=== PATIENT | male | born 1995 | race Hispanic/Latino ===

== ENCOUNTER 2017-10-07 14:11 | Inpatient (IN) | payer BC, OTHER ==
[2017-10-07] MEDS ORDERED: Adenosine 6 MG/2 ML VIAL ONE (14:22)
[2017-10-07] MEDS ORDERED: Fentanyl 100 MCG/2 ML VIAL ONE ×2 (14:27→16:27)
[2017-10-07] MEDS ORDERED: Midazolam HCl 2 mg/2 ml Vial ONE ×3 (14:27→16:27)
[2017-10-07 14:38] LABS: #Basophils 0.1 thou/uL (0.0-0.2); #Eosinphils 0.1 thou/uL (0.0-0.7); #Lymphocytes 1.8 thou/uL (1.20-3.40); #Monocytes 1.2 thou/uL (0.11-0.59); #Neutrophils 5.8 thou/uL (1.40-6.50); %Basophils 1.1 % (0.0-1.0); %Eosinophils 0.8 % (0.0-10.0); %Lymphocytes 20.2 % (21.0-51.0); %Monocytes 13.2 % (0.0-10.0); %Neutrophils 64.7 % (42.0-75.0); Hemoglobin 13.7 g/dL (14.0-18.0); Mean Corpuscular HGB CONC 33.1 g/dL (32.0-36.0); Mean Corpuscular Hemoglobin 30.8 pg (27.0-31.0); Mean Corpuscular Volume 93.1 fL (78.0-98.0); Mean Platelet Volume 10.2 fL (7.4-10.4); Platelet Count 233 thou/uL (130-400); Red Blood Cell (RBC) Count 4.44 mill/uL (4.70-6.10); White Blood Cell (WBC) Count 8.9 thou/uL (4.8-10.8)
[2017-10-07] MEDS ORDERED: Magnesium Sulfate 2 GM in Sodium Chloride 0.9% 100 ML IVPB SCH (15:00)
[2017-10-07 15:01] LABS: ALT (SGPT) 100 U/L (8-55); AST (SGOT) 53 U/L (5-34); Albumin 3.9 g/dL (3.5-5.0); Alkaline Phosphatase 62 U/L (40-150); Anion Gap 14 mmol/L (10-20); BUN (Urea Nitrogen) 18 mg/dL (8.9-20.6); Bilirubin, Total 1.2 mg/dL (0.2-1.2); Calc. Creatinine Clearance 0 mL/min (70-130); Calcium 9.3 mg/dL (7.8-10.44); Carbon Dioxide 25 mmol/L (22-29); Chloride 104 mmol/L (98-107); Estimated GFR-MDRD 60; Globulin 2.7 g/dL (2.4-3.5); Glucose 97 mg/dL (70-105); Potassium 4.2 mmol/L (3.5-5.1); Protein, Total 6.6 g/dL (6.0-8.3); Sodium 139 mmol/L (136-145)
[2017-10-07 15:03] LABS: CKMB 2.7 ng/mL (0-6.6); Troponin I Less than 0.010 ng/mL (< 0.028)
[2017-10-07] MEDS ORDERED: Verapamil 5 MG/2 ML VIAL IVP SCH (16:00)
[2017-10-07] MEDS ORDERED: Amiodarone HCl 150 MG, Admixture Fee 1 EACH in Dextrose 5% in Water 100 ML IVPB SCH (16:00)
--- NOTE | 2017-10-07 18:27 | RAD ---
CHEST ONE VIEW: 10/07/17 HISTORY: Rapid heart rate. COMPARISON: None. FINDINGS: Heart size is enlarged. Mild interstitial and alveolar edema. Small effusions. No pneumothorax. IMPRESSION: Cardiomegaly and mild edema. POS: [facility]
[2017-10-07 19:20] LABS: Troponin I Less than 0.010 ng/mL (< 0.028)
[2017-10-07] MEDS ORDERED: Furosemide 40 MG/4 ML VIAL ONE (20:17)
[2017-10-07 21:03] LABS: Bilirubin Negative (Negative); Blood, Urine Negative (Negative); Clarity CLEAR (Clear); Glucose, Urine (Dipstick) Negative (Negative); Leukocyte Negative (Negative); Nitrite Negative (Negative); Protein, Urine (Dipstick) Negative (Neg-Trace); Specific Gravity, Urine 1.015 (1.002-1.036); Urobilinogen 0.2 mg/dL (0.2-1.0); pH, Urine 5.5 (5.0-9.0)
[2017-10-07] MEDS ORDERED: Ondansetron ODT 4 MG TAB PO PRN (21:11)
[2017-10-07] MEDS ORDERED: Ondansetron HCl/PF 4 MG/2 ML Vial IVP PRN (21:11)
[2017-10-07] MEDS ORDERED: Benzonatate 100 MG CAP PO PRN (21:11)
[2017-10-07] MEDS ORDERED: cloNIDine 0.1 MG TAB PO PRN (21:11)
[2017-10-07] MEDS ORDERED: hydrALAZINE 20 MG/ML VIAL SLOW IVP PRN (21:11)
[2017-10-07] MEDS ORDERED: Spironolactone 25 MG TAB PO SCH (21:15)
[2017-10-07] MEDS ORDERED: Furosemide 20 MG/2 ML VIAL SLOW IVP SCH (21:30)
[2017-10-07 21:39] VITALS: BMI 39.2
[2017-10-07] MEDS: Lisinopril 5 MG TAB PO SCH (21:49)
[2017-10-07 22:01] LABS: CKMB 3.2 ng/mL (0-6.6); Troponin I Less than 0.010 ng/mL (< 0.028)
[2017-10-07 23:03] LABS: Bilirubin Negative (Negative); Blood, Urine Negative (Negative); Clarity CLEAR (Clear); Glucose, Urine (Dipstick) Negative (Negative); Leukocyte Negative (Negative); Nitrite Negative (Negative); Protein, Urine (Dipstick) Negative (Neg-Trace); Specific Gravity, Urine 1.005 (1.002-1.036); Urobilinogen 0.2 mg/dL (0.2-1.0)
[2017-10-07 23:11] LABS: Amphetamine Not Detected (NotDetected); Barbiturates Screen Not Detected (NotDetected); Benzodiazepine Screen Not Detected (NotDetected); Cocaine Metabolite Screen Not Detected (NotDetected); Medtox Control Line Valid? VALID (VALID); Medtox Reader # READER 4; Methadone Not Detected (NotDetected); Methamphetamine Not Detected (NotDetected); Opiate Screen Not Detected (NotDetected); Oxycodone Screen Not Detected (NotDetected); Phencyclidine (PCP) Not Detected (NotDetected); THC/Cannabinoid Screen Not Detected (NotDetected); Tricyclic Screen Not Detected (NotDetected)
--- NOTE | 2017-10-07 23:16 | CON ---
DATE OF CONSULT: 10/07/17 HISTORY: The patient is a 22-year-old gentleman who presented with acute onset of palpitations and dyspnea. T he patient states that approximately two weeks ago he started having fever and chills. He noticed in creasing dyspnea, presented to the emergency room in marked respiratory distress. PAST MEDICAL HISTORY: None. PAST SURGICAL HISTORY: None. SOCIAL HISTORY: He denies any excess alcohol use. He is a nonsmoker. ALLERGIES: None. PHYSICAL EXAMINATION: GENERAL: This is a morbidly obese gentleman and marked distress. VITAL SIGNS: His blood pressure was 150/100. NECK: Full: LUNGS: Crackles in both bases. HEART: Regular rate and rhythm, normal S1, S2, no murmurs. ABDOMEN: Distended. EXTREMITIES: Showed mild bilateral edema. LABORATORY RESULTS: Sodium 139, potassium 4.2, chloride 104, bicarbonate 25, BUN 18, creatinine 1.46. AST was 57, tropon in less than 0.01. White blood count 8.9, hemoglobin 13.7, hematocrit 41.3, platelets are 233. His EKG revealed a wide complex tachycardia suggestive of ventricular tachycardia. IMPRESSION: 1. Wide complex tachycardia, probable ventricular tachycardia. 2. Congestive heart failure. 3. Cardiomyopathy. This gentleman presented with acute respiratory distress. He underwent an emergent electrical cardio version on two occasions. He remained in a rapid wide complex tachycardia. He subsequently received two doses of adenosine. Following this, the patient was administered IV amiodarone. He underwent a n emergent echocardiogram which revealed him to have a severe decrease in left systolic function with global hypokinesis. The patient subsequently received IV amiodarone drip and converted back to norm al sinus rhythm. The patient will be admitted to the ICU. He will be started on low dose WYATT inhibi tor therapy. We will diurese with IV Lasix. We will follow this patient with you throughout his hos pitalization.
[2017-10-07] MEDS: Amiodarone HCl 450 MG, Admixture Fee 1 EACH in Dextrose 5% in Water 250 ML IVPB SCH (23:25)
--- NOTE | 2017-10-08 02:04 | CON ---
ELECTROPHYSIOLOGY CONSULTATION REPORT DATE OF CONSULTATION: 10/07/2017 REFERRING PHYSICIAN: Dr. Huseyin Mcdonald. 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 His problems are: 1. Presentation of tachycardia at a rate of 171 beats per minute with associated palpitations. A. When EKG on admit reveals a borderline wide QRS at 120 milliseconds with an atypical right bundle left axis morphology previous likely 1:1 retrograde conducted. B. Amiodarone eventually terminated the arrhythmia, but no response to adenosine seen and cardioversion was performed, but prompt recurrence of the atrial arrhythmia was seen after that. 2. Preliminary 2D echocardiogram in the ER during ventricular tachycardia reveals very poor LVEF, a 4-chamber dilation, no significant valvular heart disease, mild pericardial effusion. 3. Risk factors including morbid obesity. ALLERGIES: None noted. MEDICATIONS AT HOME: None. SUBJECTIVE: Mr. Orr was presenting in the ER with 2 weeks of palpitations, also some abdominal discomfort. He had poor p.o. intake started dropping upon 50s, 180s. He was evaluated by the ER physician eventually, adenosine was attempted a 6 and 12 mg without effect. Following that, the tachycardia quickly recurred up to 200 joule shocks, he did not cardiovert. Following that , IV amiodarone was given in the ER and bolus dosages then drip was initiated. He then spontaneously converted back to sinus rhythm on the amiodarone drip. He maintained sinus rhythm subsequent to that, the QRS complex is clearly demonstrated different morphology during sinus rhythm. No ST-T changes noted. At this point, he is not markedly dyspneic even at the supine position. His oxygen saturation is 100% by laying flat. His blood pressure was somewhat low, though with sedation at first. He does not pass out. No fever, chills are noted, mostly abdominal symptoms, but some viral symptoms also felt. No major coughing either. No phlegm, no production noted. He never had chest pain suggest angina or myocardial infarction. REVIEW OF SYSTEMS: Rest of 12-point system otherwise unremarkable. PAST MEDICAL HISTORY: No prior heart history. No congenital heart disease is appreciated. SOCIAL HISTORY: The patient is a student at [employer] and just graduated. He is originally from [place]. FAMILY HISTORY: Please refer to H and P at this point, not contributory. SOCIAL HISTORY: The patient denies smoking, EtOH, or drug abuse. OBJECTIVE: VITAL SIGNS: Blood pressure is 131/101, heart rate 168, respirations 18, oxygen saturation 99%. The patient is afebrile on arrival. GENERAL: Reveals a morbidly obese man in no apparent distress. NECK: Supple. Jugular veins difficult to visualize. CHEST: Coarse without crackles. Heart sounds are distant. S2 split. S4 gallop is heard. Heart rates are tachycardic. The PMI is nonpalpable. NEUROLOGIC: Patient nonfocal. MUSCULOSKELETAL: Without joint swelling or deformity. SKIN: Without rash. DATABASE: EKG again initially reveals a wide complex tachycardia with only 110 milliseconds. It is an atypical right bundle with left axis deviation. PVS are possibly seen following each QRS complex. Subsequent EKG after conversion reveals sinus rhythm, rate of 96 beats per minute, narrow QRS, normal RV progression, T-wave inversion seen inferolaterally. LABORATORY DATA: Magnesium is 2. Troponin I is less than 0.01, CK-MB is 2.7. Sodium 139, potassium 4.2, BUN is 18, creatinine is 1.46, GFR is 60. The AST and ALT are 53 and 100, white cell count 8.9, hemoglobin 13.7, platelet count is 233. ASSESSMENT AND PLAN: Mr. Orr is a pleasant 22-year-old man who has not much cardiac history in the past who presented with palpitations and some abdominal discomfort and noted to be in wide complex tachycardia with morphology consistent with ventricular tachycardia. He did develop hemodynamic instability while in ER with hypotension. Initially this rhythm did not respond to adenosine up to 200 joules of shock. Eventually amiodarone did convert him back to sinus rhythm. His preliminary echocardiogram reveals severely reduced LV function. He has a cardiomyopathy process with a scar formation and the ventricular tachycardia. alternatively his ventricular tachycardia could be a fascicular VT and his reduced LVEF could be related to the rapid heart rates, but this is much less likely in view of the severe LV dysfunction. Further conclusions could be drawn with response to rate control and continued heart failure therapy in response to the LV ejection fraction to the system. Plans were discussed with Dr. Mcdonald. At this point, reasonable to continue IV then p.o. amiodarone. Further ischemic workup might be necessary with heart catheterization, although by history, I am not expecting an ischemic cardiomyopathy. Hence he has VT was the primary presentation he will likely benefit from ICD implantation. 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 Thank you for the consult. We will follow with you. HOMERO
--- NOTE | 2017-10-08 04:10 | HP ---
DATE OF ADMISSION: 10/07/2017 PRIMARY CARE PROVIDER: Rupinder James M.D. CHIEF COMPLAINT: Dizziness and indigestion. HISTORY OF PRESENT ILLNESS: This is a 22-year-old male who presents to [facility] in transfer from [facility] after patient presented for evaluation of persistent dizz iness and indigestion with epigastric fullness. The patient states he first noticed this epigastric fullness and indigestion and dizziness over the last 1-1/2 years, progressing in the last 48 hours. The patient has noticed difficulty with performing exercise or exerting himself with a fullness in hi s epigastric region. The patient states he had some vomiting and nausea taking over the counter Pept o-Bismol and MiraLax. The patient states the abdominal discomfort is worse with fatty foods. The pa tient has noticed increased associated cough worse at night and having to prop himself up on pillows to sleep. The patient states he was diagnosed with a bronchitis in the last 5 weeks and treated with oral antibiotics. The patient has noticed increased weight gain, but not specifically lower extremi ty swelling. After patient presented to the emergency room, patient was noted with tachycardia and s pecifically ventricular tachycardia. The patient was immediately treated with IV verapamil as well a s adenosine. The patient was unable to convert with IV chemical conversion and proceeded with electr ical cardioversion. The patient was received fentanyl and Versed as well as magnesium sulfate. The patient eventually converted to a sinus tachycardia and placed on amiodarone infusion. The patient w as evaluated by the Cardiology Service in the emergency room with recommendations to transfer to the Critical Care Unit on an amiodarone infusion. The patient also received IV Lasix prior to transfer t o the Critical Care Unit. The patient denies any strong family history of coronary artery disease or heart failure. The patient states he is originally from [place] and just completed his education a t [employer] graduating. PAST MEDICAL HISTORY: Reviewed and negative. PAST SURGICAL HISTORY: Reviewed and negative. CURRENT MEDICATIONS: MiraLax and Pepto-Bismol over the counter. ALLERGIES: No known drug allergies. FAMILY HISTORY: No inheritable diseases per patient report. SOCIAL HISTORY: The patient originally from [place]. Graduate of [employer] in 2018. Occasional al cohol use. No tobacco or illicit drug use. Active, playing tennis, cycling and video games. REVIEW OF SYSTEMS: The following complete review of systems was negative, unless otherwise mentioned in the HPI or below: Constitutional: Weight loss or gain, ability to conduct usual activities. Sk in: Rash, itching. Eyes: Double vision, pain. ENT/Mouth: Nose bleeding, neck stiffness, pain, ten derness. Cardiovascular: Palpitations, dyspnea on exertion, orthopnea. Respiratory: Shortness of breath, wheezing, cough, hemoptysis, fever or night sweats. Gastrointestinal: Poor appetite, abdomi nal pain, heartburn, nausea, vomiting, constipation, or diarrhea. Genitourinary: Urgency, frequency , dysuria, nocturia. Musculoskeletal: Pain, swelling. Neurologic/Psychiatric: Anxiety, depression . Allergy/Immunologic: Skin rash, bleeding tendency. Otherwise negative except as stated per HPI. PHYSICAL EXAMINATION: VITAL SIGNS: Currently, blood pressure 130/77, pulse 107, respiratory rate 30, temperature 97.9 degr ees Fahrenheit, O2 saturation 100% on 10 liters by face mask. HEENT: Pupils are equal, round, and reactive to light and accommodation. Extraocular muscles are in tact. No scleral icterus, no conjunctival injection. Nares patent. OP is clear. Teeth in fair rep air. NECK: Supple, no cervical adenopathy, no thyromegaly, no carotid bruits, no JVD appreciated. Cervic al spine with full active and passive range of motion. No meningeal signs appreciated. CHEST: Decreased breath sounds with bibasilar crackles. CARDIOVASCULAR: S1, S2 with tachycardia. No murmur, rub or gallop appreciated. ABDOMEN: Rounded, soft, nontender, nondistended. Bowel sounds are positive in all four quadrants. No hepatosplenomegaly, no abdominal bruits, no rebound or guarding appreciated. EXTREMITIES: Warm and dry with fair turgor. No clubbing, cyanosis or asymmetric edema appreciated. Pulses palpable distally at the dorsalis pedis, posterior tibial, and popliteal arteries bilaterally . Capillary refill less than 2 seconds. NEUROLOGIC: Cranial nerves II-XII are grossly intact. No focal or lateralizing signs appreciated. PERTINENT LABORATORY AND X-RAY FINDINGS: Sodium 139, potassium 4.2, chloride 104, CO2 of 25, BUN 18, creatinine 1.46, estimated GFR of 60, glucose 97, calcium 9.3, magnesium 2.0, total bilirubin 1.2, A ST 53, ALT 100, alkaline phosphatase 62, troponin I negative x2. Albumin 3.9. CBC showed a white bl ood cell count of 8.9, hemoglobin 14, hematocrit 41, platelet count 233 with 65% neutrophils. Nathanael deutsch chest x-ray dated 10/07/2017 showed cardiomegaly with pulmonary edema. A 2D transthoracic echocar diogram dated 10/07/2017 showed ejection fraction of 15%-20%. Mild left atrial enlargement. Mild to moderate tricuspid valve regurgitation. Small pericardial effusion. EKG dated 10/07/2017 shows sup raventricular tachycardia/ventricular tachycardia. Repeat EKG dated 10/07/2017 by my interpretation shows a sinus mechanism with heart rates in the 90s. Attenuated R waves noted in the precordial lead s. Right axis deviation. T-wave inversion in leads II, III, and F. ASSESSMENT AND PLAN: 1. Sustained ventricular tachycardia. The patient will be admitted to the critical care unit. Stat us post chemical and electrical cardioversion with current amiodarone infusion. We will continue ami odarone infusion and monitor clinical response. We will consult Cardiology and Electrophysiology Ser vice in the a.m. Check magnesium and TSH level. Check urine drug screen. 2. Acute systolic congestive heart failure. Exact etiology unclear. Questionable etiology. We alvin l continue general workup including viral studies. Differential is extensive. The patient likely wi ll need cardiac catheterization to rule out underlying ischemic etiology. Continue aspirin 325 mg da fran. Lasix 40 mg IV q.12 hours. We will give additional Lasix 20 mg IV x1 now. Start Lisinopril 2. 5 mg p.o. b.i.d. 3. Cardiomyopathy. See #2 above. We will continue general workup as outlined previously. Check AN A, HIV, iron studies and lipid profile. 4. Acute kidney injury. Suspect secondarily to intravascular volume depletion in the context of con gestive heart failure. Check urinalysis. Avoid nephrotoxic agents and limit contrast exposure. Rep eat creatinine in the a.m. 5. Transaminitis. Suspect hepatic congestion secondary to congestive heart failure. Repeat liver f unction tests and monitor trend. 6. Prophylaxis. Sequential compression devices while in bed. Pepcid 20 mg p.o. b.i.d. 7. Code status is FULL. Surrogate medical decision maker not identified.
[2017-10-08 05:23] LABS: Band 12 % (5-11); Eosinophils 1 % (0-10); Hemoglobin 12.8 g/dL (14.0-18.0); Lymphocytes 16 % (21-51); MDiff Complete? YES; Mean Corpuscular HGB CONC 34.2 g/dL (32.0-36.0); Mean Corpuscular Hemoglobin 31.8 pg (27.0-31.0); Mean Corpuscular Volume 93.1 fL (78.0-98.0); Mean Platelet Volume 10.1 fL (7.4-10.4); Monocytes 8 % (0-10); Neutrophil 63 % (42-75); PLT Morphology Comment Appears Adequate; Platelet Count 191 thou/uL (130-400); RBC Distribution Width 12.9 % (11.5-14.5); Red Blood Cell (RBC) Count 4.03 mill/uL (4.70-6.10)
[2017-10-08 05:28] LABS: ALT (SGPT) 82 U/L (8-55); AST (SGOT) 43 U/L (5-34); Albumin 3.5 g/dL (3.5-5.0); Alkaline Phosphatase 53 U/L (40-150); Anion Gap 15 mmol/L (10-20); BUN (Urea Nitrogen) 16 mg/dL (8.9-20.6); Bilirubin, Total 1.6 mg/dL (0.2-1.2); Calc. Creatinine Clearance 191 mL/min (70-130); Calcium 8.7 mg/dL (7.8-10.44); Carbon Dioxide 22 mmol/L (22-29); Cardiac Risk 5.9 (Less than 4.5); Chloride 107 mmol/L (98-107); Cholesterol 94 mg/dl (< 200 Desired); Estimated GFR-MDRD 76; Globulin 2.3 g/dL (2.4-3.5); Glucose 150 mg/dL (70-105); HDL Cholesterol 16 mg/dL (>60 Neg Risk); Iron 42 ug/dL (65-175); LDL Cholesterol, Calculated 63 mg/dL; Magnesium 1.7 mg/dL (1.6-2.6); Potassium 3.9 mmol/L (3.5-5.1); Protein, Total 5.8 g/dL (6.0-8.3); Sodium 140 mmol/L (136-145); Triglycerides 77 mg/dL (Less than 150)
[2017-10-08] MEDS: Furosemide 40 MG/4 ML VIAL SLOW IVP SCH ×2 (06:35→14:15)
[2017-10-08] MEDS: Lisinopril 5 MG TAB PO SCH (08:18)
[2017-10-08] MEDS: Spironolactone 25 MG TAB PO SCH (08:22)
[2017-10-08] MEDS: Aspirin 325 mg Enteric Coated Tablet PO SCH (08:22)
[2017-10-08] MEDS: Famotidine 20 MG TAB PO SCH ×2 (08:22→21:33)
[2017-10-08] MEDS ORDERED: Carvedilol 3.125 MG TAB PO SCH (08:45)
[2017-10-08] MEDS ORDERED: Carvedilol 6.25 MG TAB PO SCH (08:45)
--- NOTE | 2017-10-08 09:19 | RAD ---
PORTABLE CHEST 1 VIEW: Date: 10/08/17 Time: 0805 hours HISTORY: Chest pain. FINDINGS: Comparison made with exam from previous day. The heart is enlarged. The lungs are expanded with mild pulmonary edema. No lobar consolidation, pneu mothoraces, or large effusions are seen. IMPRESSION: Mild CHF. POS: [facility]
[2017-10-08] MEDS ORDERED: Lisinopril 5 MG TAB PO SCH (10:40)
[2017-10-08] MEDS ORDERED: Communication Order-Pharmacy FS SCH (10:45)
[2017-10-08] MEDS ORDERED: ISOVUE-370 76%-LOCM 1 ML ONE (10:47)
[2017-10-08] MEDS: Acetaminophen 500 MG TAB PO PRN (11:25)
--- NOTE | 2017-10-08 11:26 | CON ---
DATE OF CONSULTATION: 10/08/2017 SERVICE: Pulmonary Medicine. REASON FOR CONSULTATION: ICU patient. HISTORY OF PRESENT ILLNESS: The patient is a 22-year-old male with past medical history significant for nothing. He was in his usual state of health until back in the late June when he had the onset of some sort of an upper respiratory tract infection. It lingered for 2-3 weeks and ultimately went away with a combination of allergy medications as well as antibiotics. Ultimately, he returned to his usual state of health and he had no incidence there. He does not report having any sick contacts. He started having onset of shortness of breath, particularly with exertion. He presented to the emergency department and was discovered to have a cardiomyopathy. In the ER, he had a ventricular tachycardia. He was hemodynamically stable. As such, he was placed on medications. He spontaneously converted. He is currently in sinus tachycardia, but otherwise is not having any respiratory events. He relates being short of breath after he got a nonrebreather placed on his face. He was very uncomfortable with this device on. He became claustrophobic and started having severe dyspnea. He did get a dose of Lasix. He had a significant diuresis with it. That being said, he is down to 2 liters nasal cannula at this time and he is breathing comfortably. He does not have any conversational dyspnea or tachypnea at this point. PAST MEDICAL HISTORY: None. PAST SURGICAL HISTORY: None. ALLERGIES: No known drug allergies. MEDICATIONS: List of his inpatient medications were reviewed. No specific updates were made at this time. FAMILY HISTORY: Noncontributory. SOCIAL HISTORY: He is a [place]. He graduated from [employer] in 2018. He does not have any significant alcohol use. He does not have any episodes of abusing alcohol recently. He denies any tobacco or illicit drug use. He has no exposure to chemicals, dust, asbestos, or tuberculosis. He is not on any weight loss medications and does not take any wmby-oyz-zdxzkaj supplements. REVIEW OF SYSTEMS: General, head, ears, eyes, nose, throat, cardiovascular, respiratory, GI, , musculoskeletal, neurologic, and skin is negative except as mentioned in the HPI. PHYSICAL EXAMINATION: VITAL SIGNS: Afebrile, pulse 100, blood pressure 128/78, respirations 31, saturation 98% on 3 liters nasal cannula. GENERAL: The patient is awake and alert. No apparent distress. LUNGS: There is a little bit of dependent crackles present. There is also decreased air entry at the right base with a dullness to percussion there. HEART: Tachycardic. Regular. ABDOMEN: Soft, nontender, nondistended. Bowel sounds are positive. MUSCULOSKELETAL: No cyanosis or clubbing. There is no pitting in the bilateral lower extremities. NEUROLOGIC: Grossly nonfocal. LABORATORY DATA: Basic metabolic profile is essentially unremarkable. Liver function studies including bilirubin, AST, and ALT are marginally elevated. The LFTs are actually downtrending gently. Cardiac enzymes are negative. TSH falls within the normal limits. Magnesium is normal. Creatinine was 1.46, but is now downtrending to 1.18. Urinalysis is unremarkable. Urine drug screen is completely unremarkable as well. Blood cultures x2 are negative. IMAGIN. Chest x-ray demonstrates cardiomegaly. There is no obvious consolidation. Pulmonary vasculature is a little bit engorged, and there is a little widening to the loren suggestive of left atrial enlargement. 2. Echocardiogram demonstrates a 15%-20% ejection fraction. He has got a dilated ventricle with global hypokinesis. [id number] tricuspid regurgitation is also present. There is a small circumferential pericardial effusion identified. ASSESSMENT: 1. Acute hypoxic respiratory failure. 2. Acute systolic heart failure. 3. Ventricular tachycardia, stable. DISCUSSION AND PLAN: We will try to diurese the patient until he arrives to euvolemia. We will try to mobilize the patient some throughout the day. He will remain in the ICU until Cardiology clears him for transition to the telemetry unit. Pulmonary Critical Care will continue to follow along in this location. He may benefit from an outpatient evaluation for obstructive sleep apnea. 70 minutes have been devoted to this patient in various activities. I personally reviewed all imaging studies and laboratory data noted within this document. For fifty percent of this time, I was interacting with the patient at the bedside or coordinating care with the care team. For the remainder of the time I was immediately available to the patient in the hospital unit. HOMERO
--- NOTE | 2017-10-08 11:39 | CT ---
CT PULMONARY ANGIOGRAM WITH IV CONTRAST AND 3D MIP RECONSTRUCTIONS: Date: 10/08/17 PROVIDED CLINICAL HISTORY: Shortness of breath and tachycardia. FINDINGS: The heart is enlarged. There is no evidence for central or segmental pulmonary embolus. There is patchy bilateral predominantly parahilar and biapical air space disease (combination of grou nd-glass opacity and consolidation). There is a mild to moderate pericardial effusion. There are bila teral pleural effusions, greater on the right. There is passive atelectasis involving each lower lobe . There is no evidence for pneumothorax. The airway appears patent and of normal caliber. There is no evidence for thoracic lymph node enlargement. The visualized portions of the upper abdomen appear un remarkable. The osseous structures demonstrate no concerning lytic or blastic lesions. IMPRESSION: 1. Cardiomegaly and bilateral pleural effusions, along with bilateral parahilar air space disease is most suggestive of congestive heart failure and alveolar edema. Infectious or inflammatory process i nvolving the lung parenchyma could also be considered, but is less favored. 2. Mild to moderate pericardial effusion. 3. No evidence for central or segmental pulmonary embolus. POS: [facility]
[2017-10-08] MEDS: Amiodarone HCl 450 MG, Admixture Fee 1 EACH in Dextrose 5% in Water 250 ML IVPB SCH (15:59)
--- NOTE | 2017-10-08 16:19 | PDOC.PN ---
- Subjective Encounter Start Date: 10/08/17 Encounter Start Time: 11:30 Subjective: f/u for V-tach/CHF s/p chemical/electrical cardioversion on current -: Amiodarone gtt. Feels much better today. Diuresing with Lasix down -: 5Lbs since admit. - Objective MAR Reviewed: Yes Vital Signs & Weight: Vital Signs (12 hours) Temp Pulse Resp BP Pulse Ox 10/08/17 15:16 98 10/08/17 12:00 98.0 F 10/08/17 08:18 100 128/78 10/08/17 07:39 98.0 F 100 21 H 93 L 10/08/17 07:00 98.0 F Weight Weight 300 lb 14.896 oz Most Recent Monitor Data Heart Rate from ECG 84 NIBP 133/77 NIBP BP-Mean 95 Respiration from ECG 32 SpO2 98 I&O: 10/07/17 10/08/17 10/09/17 06:59 06:59 06:59 Intake Total 355 960 Output Total 4500 3675 Balance -9288 -6168 Result Diagrams: 10/08/17 04:28 10/08/17 04:28 Additional Labs: Microbiology 10/07/17 17:38 Venous blood - Left Arm Blood Culture - Preliminary Specimen has been received and culture in progress. No Growth to date. 10/07/17 17:33 Venous blood - Left Hand Blood Culture - Preliminary Specimen has been received and culture in progress. No Growth to date. Laboratory Tests 10/07/17 10/07/17 10/07/17 14:29 14:29 14:29 WBC 8.9 Band Neuts % (Manual) D-Dimer Magnesium 2.0 AST 53 H Triglycerides Cholesterol LDL Cholesterol, Calc HDL Cholesterol TSH 3rd Generation 10/08/17 10/08/17 10/08/17 04:28 04:28 04:28 WBC Band Neuts % (Manual) 12 H D-Dimer Magnesium 1.7 AST 43 H Triglycerides 77 Cholesterol 94 LDL Cholesterol, Calc 63 HDL Cholesterol 16 TSH 3rd Generation 0.5704 10/08/17 08:24 WBC Band Neuts % (Manual) D-Dimer 13.27 H Magnesium AST Triglycerides Cholesterol LDL Cholesterol, Calc HDL Cholesterol TSH 3rd Generation Radiology Reviewed by me: Yes (CTA chest - neg for PE, bilat pleural effusions R >L) EKG Reviewed by me: Yes (Tele - SR in 80's) Phys Exam - Physical Examination Constitutional: NAD HEENT: PERRLA, sclera anicteric, oral pharynx no lesions Neck: no nodes, no JVD, supple, full ROM Diminished in R base, few basilar crackles S1, S2 Cardiovascular: RRR, no significant murmur, no rub, gallop Gastrointestinal: soft, non-tender, no distention, positive bowel sounds Musculoskeletal: no edema, pulses present Neurological: non-focal, normal sensation, moves all 4 limbs Psychiatric: normal affect, A&O x 3 Skin: no rash, normal turgor, cap refill <2 seconds Dx/Plan (1) Acute systolic CHF (congestive heart failure) Code(s): I50.21 - ACUTE SYSTOLIC (CONGESTIVE) HEART FAILURE Status: Acute Comment: EF 15-20%, continue Lasix 40mg IV BID, follow I/O's, daily weight (2) Ventricular tachycardia Code(s): I47.2 - VENTRICULAR TACHYCARDIA Status: Acute Comment: Continue Amiodarone gtt and transition to po Amiodarone in next 24-48h (3) Cardiomyopathy Code(s): I42.9 - CARDIOMYOPATHY, UNSPECIFIED Status: Acute Qualifiers: Cardiomyopathy type: viral Qualified Code(s): 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.24 - Viral cardiomyopathy Comment: 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
[2017-10-08 16:25] LABS: ANA Symphony (Qualitative) Negative (Negative); dsDNA IgG Antibody 0.7 IU/mL (<10 Negative)
[2017-10-08] MEDS: Carvedilol 3.125 MG TAB PO SCH (18:36)
[2017-10-09 05:06] LABS: ALT (SGPT) 70 U/L (8-55); AST (SGOT) 31 U/L (5-34); Albumin 3.5 g/dL (3.5-5.0); Alkaline Phosphatase 51 U/L (40-150); Anion Gap 13 mmol/L (10-20); BUN (Urea Nitrogen) 14 mg/dL (8.9-20.6); Bilirubin, Total 1.1 mg/dL (0.2-1.2); Calc. Creatinine Clearance 180 mL/min (70-130); Calcium 8.9 mg/dL (7.8-10.44); Carbon Dioxide 24 mmol/L (22-29); Chloride 108 mmol/L (98-107); Estimated GFR-MDRD 78; Globulin 2.4 g/dL (2.4-3.5); Glucose 79 mg/dL (70-105); Potassium 3.8 mmol/L (3.5-5.1); Protein, Total 5.9 g/dL (6.0-8.3); Sodium 141 mmol/L (136-145)
[2017-10-09 05:19] LABS: HIV (1/2) Antibody/Antigen Non-Reactive (NonReactive)
[2017-10-09] MEDS: Amiodarone HCl 450 MG, Admixture Fee 1 EACH in Dextrose 5% in Water 250 ML IVPB SCH (06:37)
[2017-10-09] MEDS ORDERED: Lidocaine 1% (PF) 30 ML VIAL ONE ×2 (06:38→14:45)
[2017-10-09] MEDS: Carvedilol 3.125 MG TAB PO SCH ×2 (06:51→19:15)
[2017-10-09] MEDS ORDERED: Midazolam HCl 2 mg/2 ml Vial ONE ×2 (07:38→16:12)
[2017-10-09] MEDS ORDERED: Spironolactone 25 MG TAB PO SCH (08:10)
[2017-10-09] MEDS: Amiodarone 200 MG TAB PO SCH ×3 (09:25→20:50)
[2017-10-09] MEDS: Spironolactone 25 MG TAB PO SCH (09:25)
[2017-10-09] MEDS: Lisinopril 10 MG TAB PO SCH ×2 (09:26→20:49)
[2017-10-09] MEDS: Famotidine 20 MG TAB PO SCH ×2 (09:26→20:50)
[2017-10-09] MEDS: Aspirin 325 mg Enteric Coated Tablet PO SCH (09:27)
--- NOTE | 2017-10-09 10:14 | PRG ---
DATE OF SERVICE: 10/09/2017 SERVICE: Pulmonary Medicine. INTERVAL HISTORY: The patient is doing great from a respiratory standpoint. He did not have any events on telemetry overnight. He went down for cardiac catheterization this morning. It is my understanding that he has clean coronaries. There has been no interval change to his condition otherwise. PHYSICAL EXAMINATION: VITAL SIGNS: Afebrile, pulse 81, blood pressure 131/87, respirations 32, saturation 93% on room air. GENERAL: The patient is awake, alert, no apparent distress. LUNGS: Decent air entry with no prolonged expiratory phase, wheezing, rhonchi, or crackles present. HEART: Normal rate, regular. ABDOMEN: Soft, nontender, nondistended. Bowel sounds are positive. MUSCULOSKELETAL: No cyanosis or clubbing. There is no pitting in the bilateral lower extremities. NEUROLOGIC: Grossly nonfocal. LABORATORY DATA: WBC 12.0, hemoglobin 12.8, platelets 191,000. Band count is 12%. D-dimer 13.27. Basic metabolic profile, liver function studies are otherwise unremarkable. TSH 0.57. Urinalysis and urine drug screen are unremarkable. JOSE ANGEL screen is negative. HIV 1 and 2 are nonreactive. Blood cultures x2 are negative. IMAGING: CTA of the chest demonstrates no evidence of a pulmonary embolism. Bilateral pleural effusions, and perihilar ground glass opacifications are most consistent with acute volume overload event. There is mild to moderate pericardial effusion identified. ASSESSMENT: 1. Acute systolic heart failure. 2. Nonischemic cardiomyopathy. 3. Ventricular tachycardia, stable. DISCUSSION AND PLAN: The patient is going down for an AICD today. Once this is in place, he can be transitioned to the floor if electrophysiology and Cardiology are okay with that. Pulmonary and Critical Care will continue to follow while he remains in this location. Ultimately, when he arrives on the floor, he will have no further need for Pulmonary or Critical Care opinion, and I will sign off. HOMERO
[2017-10-09] MEDS ORDERED: PROPOFOL 200 MG/20 ML VIAL ONE (12:35)
[2017-10-09] MEDS ORDERED: Iopamidol 370 76% 100 ML VIAL ONE (13:02)
[2017-10-09] MEDS ORDERED: CEFAZOLIN/Water 2 GM/20 ML SYRINGE SLOW IVP SCH (14:00)
[2017-10-09 14:32] LABS: #Eosinphils 0.2 thou/uL (0.0-0.7); #Lymphocytes 1.3 thou/uL (1.20-3.40); #Neutrophils 7.7 thou/uL (1.40-6.50); %Basophils 0.5 % (0.0-1.0); %Eosinophils 1.8 % (0.0-10.0); %Lymphocytes 12.5 % (21.0-51.0); %Monocytes 9.8 % (0.0-10.0); %Neutrophils 75.5 % (42.0-75.0); Hemoglobin 13.4 g/dL (14.0-18.0); Mean Corpuscular Hemoglobin 32.2 pg (27.0-31.0); Mean Corpuscular Volume 92.2 fL (78.0-98.0); Mean Platelet Volume 9.4 fL (7.4-10.4); Platelet Count 210 thou/uL (130-400); Red Blood Cell (RBC) Count 4.16 mill/uL (4.70-6.10); White Blood Cell (WBC) Count 10.1 thou/uL (4.8-10.8)
[2017-10-09 14:38] LABS: INR-International Normal Ratio 1.3; PTT 25.5 SEC (22.9-36.1); Prothrombin Time 15.9 SEC (12.0-14.7)
[2017-10-09] MEDS ORDERED: CEFAZOLIN/Water 2 GM/20 ML SYRINGE ONE (14:46)
[2017-10-09] MEDS: Furosemide 40 MG/4 ML VIAL SLOW IVP SCH (15:30)
[2017-10-09] MEDS ORDERED: Fentanyl 100 MCG/2 ML VIAL ONE (16:13)
[2017-10-09] MEDS ORDERED: PROPOFOL 20 ML ONE (16:52)
[2017-10-09] MEDS ORDERED: Ondansetron HCl/PF 4 MG/2 ML Vial IVP PRN (17:29)
--- NOTE | 2017-10-09 17:32 | PDOC.PN ---
- Subjective Encounter Start Date: 10/09/17 Encounter Start Time: 15:15 Subjective: f/u for V-tach, cardiomyopathy and acute syst CHF. Overall feeling -: much better and minimal dyspnea. Cardiac cath today neg for CAD. -: EF remains depressed in 15% range. Plan for AICD today. - Objective MAR Reviewed: Yes Vital Signs & Weight: Vital Signs (12 hours) Temp Pulse Resp BP Pulse Ox 10/09/17 12:00 98.0 F 10/09/17 09:26 137/94 H 10/09/17 08:30 98.1 F 86 16 95 10/09/17 08:25 82 16 137/90 10/09/17 08:00 98.1 F Weight Weight 283 lb 4.704 oz Most Recent Monitor Data Heart Rate from ECG 91 NIBP 152/101 NIBP BP-Mean 115 Respiration from ECG 27 SpO2 97 I&O: 10/08/17 10/09/17 10/10/17 06:59 06:59 06:59 Intake Total 355 1809 0 Output Total 4500 5975 625 [facility]4145 -4166 -625 Result Diagrams: 10/09/17 14:25 10/09/17 03:42 Additional Labs: Microbiology 10/07/17 17:38 Venous blood - Left Arm Blood Culture - Preliminary Specimen has been received and culture in progress. No Growth to date. 10/07/17 17:33 Venous blood - Left Hand Blood Culture - Preliminary Specimen has been received and culture in progress. No Growth to date. Laboratory Tests 10/07/17 10/07/17 10/07/17 14:29 14:29 14:29 WBC 8.9 Band Neuts % (Manual) D-Dimer Magnesium 2.0 AST 53 H Triglycerides Cholesterol LDL Cholesterol, Calc HDL Cholesterol TSH 3rd Generation JOSE ANGEL Screen JOSE ANGEL IgG Screen Anti-ds DNA IgG Ab HIV 1&2 Antigen & Ab 10/08/17 10/08/17 10/08/17 04:28 04:28 04:28 WBC Band Neuts % (Manual) 12 H D-Dimer Magnesium 1.7 AST 43 H Triglycerides 77 Cholesterol 94 LDL Cholesterol, Calc 63 HDL Cholesterol 16 TSH 3rd Generation 0.5704 JOSE ANGEL Screen JOSE ANGEL IgG Screen Anti-ds DNA IgG Ab HIV 1&2 Antigen & Ab 10/08/17 10/08/17 10/09/17 04:28 08:24 03:42 WBC Band Neuts % (Manual) D-Dimer 13.27 H Magnesium AST Triglycerides Cholesterol LDL Cholesterol, Calc HDL Cholesterol TSH 3rd Generation JOSE ANGEL Screen Negative JOSE ANGEL IgG Screen Negative Anti-ds DNA IgG Ab 0.7 HIV 1&2 Antigen & Ab Non-Reactive Radiology Reviewed by me: Yes (Heart cath - no flow limiting dz, EF 17%) EKG Reviewed by me: Yes (Tele - SR in 80's) Phys Exam - Physical Examination Constitutional: NAD HEENT: PERRLA, sclera anicteric, oral pharynx no lesions Neck: no nodes, no JVD, supple, full ROM few basilar crackles Respiratory: no wheezing, no rhonchi, clear to auscultation bilateral S1, S2 Cardiovascular: RRR, no significant murmur, no rub, gallop Gastrointestinal: soft, non-tender, no distention, positive bowel sounds Musculoskeletal: no edema, pulses present Neurological: non-focal, normal sensation, moves all 4 limbs Psychiatric: normal affect, A&O x 3 Skin: no rash, normal turgor, cap refill <2 seconds Dx/Plan (1) Acute systolic CHF (congestive heart failure) Code(s): I50.21 - ACUTE SYSTOLIC (CONGESTIVE) HEART FAILURE Status: Acute Comment: EF 15-20%, continue Lasix 40mg IV BID, follow I/O's, daily weight (2) Ventricular tachycardia Code(s): I47.2 - VENTRICULAR TACHYCARDIA Status: Acute Comment: Continue Amiodarone 400mg TID, AICD placement today (3) Cardiomyopathy Code(s): I42.9 - CARDIOMYOPATHY, UNSPECIFIED Status: Acute Qualifiers: Cardiomyopathy type: viral Qualified Code(s): B33.24 - Viral cardiomyopathy Comment: Suspected viral cardiomyopathy, supportive mgmt, WYATT-i/B-nadiya, ASA (4) SB (acute kidney injury) Code(s): N17.9 - ACUTE KIDNEY FAILURE, UNSPECIFIED Status: Acute Comment: Resolving, serial monitoring (5) Transaminitis Code(s): R74.0 - NONSPEC ELEV OF LEVELS OF TRANSAMNS & LACTIC ACID DEHYDRGNSE Status: Acute Comment: Suspect due to hepatic congestion in context of #1, stable - Plan manager social services, DVT proph w/SCDs Stable currently -: AICD placement today -: Continue WYATT-i, Aldactone, B-nadiya, Lasix -: Continue ASA 81mg daily -: Transfer to Telemetry * Likely home in am
[2017-10-09] MEDS: Acetaminophen 500 MG TAB PO PRN (20:49)
[2017-10-09] MEDS: Cephalexin 250 MG CAP PO SCH (23:33)
[2017-10-10 05:51] LABS: #Basophils 0.1 thou/uL (0.0-0.2); #Eosinphils 0.1 thou/uL (0.0-0.7); #Lymphocytes 1.6 thou/uL (1.20-3.40); #Neutrophils 5.6 thou/uL (1.40-6.50); %Basophils 0.8 % (0.0-1.0); %Eosinophils 1.6 % (0.0-10.0); %Lymphocytes 18.7 % (21.0-51.0); %Monocytes 11.6 % (0.0-10.0); %Neutrophils 67.3 % (42.0-75.0); Hemoglobin 12.8 g/dL (14.0-18.0); Mean Corpuscular HGB CONC 33.1 g/dL (32.0-36.0); Mean Corpuscular Hemoglobin 31.2 pg (27.0-31.0); Mean Corpuscular Volume 94.4 fL (78.0-98.0); Platelet Count 190 thou/uL (130-400); RBC Distribution Width 13.1 % (11.5-14.5); Red Blood Cell (RBC) Count 4.12 mill/uL (4.70-6.10); White Blood Cell (WBC) Count 8.3 thou/uL (4.8-10.8)
[2017-10-10 05:52] LABS: INR-International Normal Ratio 1.3; PTT 27.6 SEC (22.9-36.1)
[2017-10-10 05:56] LABS: Anion Gap 13 mmol/L (10-20); BUN (Urea Nitrogen) 11 mg/dL (8.9-20.6); Calc. Creatinine Clearance 243 mL/min (70-130); Calcium 8.8 mg/dL (7.8-10.44); Carbon Dioxide 19 mmol/L (22-29); Chloride 110 mmol/L (98-107); Estimated GFR-MDRD Greater than 90; Glucose 79 mg/dL (70-105); Sodium 138 mmol/L (136-145)
[2017-10-10] MEDS ORDERED: Furosemide 40 MG/4 ML VIAL SLOW IVP SCH (06:00)
[2017-10-10] MEDS: Cephalexin 250 MG CAP PO SCH ×2 (06:01→11:29)
[2017-10-10] MEDS: Acetaminophen 500 MG TAB PO PRN (06:01)
[2017-10-10] MEDS: Furosemide 40 MG/4 ML VIAL SLOW IVP SCH (06:01)
[2017-10-10] MEDS: Carvedilol 3.125 MG TAB PO SCH (08:10)
[2017-10-10] MEDS: Amiodarone 200 MG TAB PO SCH ×2 (08:11→14:27)
[2017-10-10] MEDS: Aspirin 325 mg Enteric Coated Tablet PO SCH (08:11)
[2017-10-10] MEDS: Lisinopril 10 MG TAB PO SCH (08:12)
[2017-10-10] MEDS: Famotidine 20 MG TAB PO SCH (08:12)
--- NOTE | 2017-10-10 09:38 | RAD ---
RADIOGRAPH CHEST 1 VIEW: Date: 10/10/17. Time: 6:18 a.m. HISTORY: A 22-year-old male status post new AICD placement. COMPARISON: 10/08/17 at 8:05 a.m. FINDINGS: There is a new single-lead left subclavian AICD. There is no interval change in the cardiomegaly and the diffusely prominent interstitial markings. No pneumothorax is identified. The lateral costophr enic angles remain sharp. IMPRESSION: 1. New automatic implantable cardioverter/defibrillator placement, without pneumothorax. 2. Cardiomegaly. RODOLFO [] POS: TPC
[2017-10-10 11:29] VITALS: BP 111/62; TEMP 97.8
--- NOTE | 2017-10-10 12:12 | DIS ---
DATE OF ADMISSION: 10/07/2017 DATE OF DISCHARGE: 10/10/2017 DISCHARGE DIAGNOSES: 1. Status post sustained ventricular tachycardia with chemical and electrical cardioversion. 2. Acute systolic congestive heart failure with ejection fraction of 15%-20%. 3. Nonischemic cardiomyopathy with ejection fraction of 15%-20%. 4. Status post automated internal cardioverter defibrillator placement, 10/09/2017. 5. Acute kidney injury, resolved. 6. Transaminitis secondary to hepatic congestion, resolving. CONSULTATIONS: Dr. Mcdonald with Cardiology Service. Dr. Harris with Electrophysiology Service. Dr. Calvillo with Pulmonary and Critical Care Service. PERTINENT LABORATORY DATA AND X-RAY FINDINGS: Creatinine ranged between 0.88-1.46, estimated GFR ran ged between 60 to greater than 90. Magnesium 1.7. AST ranged between 31-53, ALT ranged between 70-1 00. Troponin I negative x3. Total cholesterol 94, triglycerides 77, HDL 16, LDL 63. TSH 0.57. CBC showed a white blood cell count ranged between 8.3-12.0, hemoglobin ranged between 12.8-13.4. Urina lysis negative, 10/07/2017. Urine drug screen dated 10/07/2017, negative. JOSE ANGEL screen negative, 07/2017. HIV 1 and 2 antigen antibody negative, 10/09/2017. Blood cultures x2 from 10/07/2017 showed no growth at 48 hours. Portable chest x-ray dated 10/07/2017 showed cardiomegaly with mild pulmonar y edema. A 2D transthoracic echocardiogram dated 10/07/2017 showed ejection fraction of 15%-20%. Mi ld left atrial enlargement. Mild to moderate tricuspid regurgitation. Small pericardial effusion. CT angiogram of the chest dated 10/08/2017 showed no evidence for pulmonary embolus. Mild to moderat e pericardial effusion. Bilateral pleural effusions noted. Portable chest x-ray dated 10/10/2017 sh owed AICD device in place without evidence of pneumothorax. HOSPITAL COURSE: Patient was initially admitted after presenting with dizziness and indigestion disc overed with sustained ventricular tachycardia. The patient underwent aggressive treatment to include electrical cardioversion as well as chemical cardioversion. The patient was placed on amiodarone in fusion and transferred to the Critical Care Unit. The patient received multiple medications to inclu de magnesium and verapamil. The patient was evaluated by the Electrophysiology and Cardiology Servic e with recommendations to undergo cardiac evaluation to include 2D transthoracic echocardiogram. The patient was noted with a depressed ejection fraction of 15%-20%, prompting an investigation toward i schemic etiology. The patient underwent cardiac catheterization showing no flow limiting disease; ho wever, ejection fraction was confirmed depressed in the 15%-20% range. The patient continued on IV L asix due to volume overload and pulmonary edema stabilizing in the first 24-48 hours. The patient wa s evaluated by the Electrophysiology Service and deemed an appropriate candidate for placement of AIC D device due to high risk for recurrent life threatening arrhythmia. The patient underwent AICD plac ement on 10/09/2017 without complication. The patient continued to receive general medical therapy w ith adjustments to his antihypertensive regimen and antiarrhythmics. The patient transitioned to ami odarone 400 mg t.i.d. and tolerated the therapy without complication. Suspected underlying etiology of patient's presentation and cardiomyopathy likely viral cardiomyopathy to date. Extensive metaboli c workup has essentially been unrevealing. The patient continued to clinically improve with supporti ve management, ambulating without assistance or difficulty, tolerating regular oral intake, and voidi ng appropriately. I have examined the patient at the time of discharge and discussed pertinent foll ow up instructions, at which point the patient verbalized understanding and agreement. The patient o verall clinically stable and ready for discharge on 10/10/2017. DISCHARGE MEDICATIONS: 1. Enteric coated aspirin 81 mg 1 tab p.o. daily. 2. Amiodarone 400 mg p.o. t.i.d. 3. Coreg 12.5 mg p.o. b.i.d. 4. Keflex 500 mg p.o. q.i.d. x7 days. 5. Lasix 40 mg 1 tab p.o. daily. 6. Zestril 10 mg p.o. b.i.d. 7. Aldactone 50 mg p.o. daily. FOLLOWUP: Patient to follow up with his primary care provider, Dr. Rupinder James on 10/17/2017 at 3:15 p.m. The patient will follow up with Dr. Harris with Electrophysiology Service and to call [facility] office for appointment time and date. The patient will follow up with Dr. Huseyin Mcdonald with [facility] Cardiology Service 2-3 weeks after discharge. CONDITION ON DISCHARGE: Stable. ACTIVITY: ad ria. DIET: Heart healthy. CODE STATUS: FULL. DISPOSITION: Home, 10/10/2017. Total time preparing and coordinating discharge 38 minutes.
[2017-10-10] MEDS ORDERED: Carvedilol 6.25 MG TAB PO SCH (17:00)
--- NOTE | 2017-10-10 17:05 | EKG ---
Test Reason : STAT Blood Pressure : / mmHG Vent. Rate : 078 BPM Atrial Rate : 078 BPM P-R Int : 178 ms QRS Dur : 098 ms QT Int : 436 ms P-R-T Axes : 023 131 -09 degrees QTc Int : 497 ms Normal sinus rhythm Possible Left atrial enlargement Right axis deviation T wave abnormality, consider inferior ischemia Abnormal ECG When compared with ECG of 09-OCT-2017 14:12, No significant change was found Confirmed by DR. Melvin SHARIF ([id number]) on 10/10/2017 5:04:50 PM Referred By: RUFINO Confirmed By:DR. Melvin SHARIF
--- NOTE | 2017-10-10 17:07 | EKG ---
Test Reason : Blood Pressure : / mmHG Vent. Rate : 080 BPM Atrial Rate : 080 BPM P-R Int : 166 ms QRS Dur : 110 ms QT Int : 446 ms P-R-T Axes : 033 -39 015 degrees QTc Int : 514 ms Normal sinus rhythm Left axis deviation Prolonged QT Poor anterior R wave progression Abnormal ECG When compared with ECG of 09-OCT-2017 17:55, (Unconfirmed) QRS axis Shifted left Confirmed by DR. Melvin SHARIF ([id number]) on 10/10/2017 5:07:21 PM Referred By: YOVANY Confirmed By:DR. Melvin SHARIF
[2017-10-11] MEDS ORDERED: Furosemide 40 MG TAB PO SCH (07:30)
--- NOTE | 2017-10-11 16:11 | EKG ---
Test Reason : TACHYCARDIA Blood Pressure : / mmHG Vent. Rate : 173 BPM Atrial Rate : 053 BPM P-R Int : 000 ms QRS Dur : 122 ms QT Int : 320 ms P-R-T Axes : 000 -44 147 degrees QTc Int : 542 ms Wide QRS tachycardia Left axis deviation Abnormal ECG Confirmed by DOUGLAS DIAZ ([id number]), production editor LAWSON DE SOUZA ([id number]) on 10/11/2017 4:11:19 PM Referred By: Confirmed By:DOUGLAS DIAZ
--- NOTE | 2017-10-11 16:12 | EKG ---
Test Reason : Blood Pressure : / mmHG Vent. Rate : 171 BPM Atrial Rate : 077 BPM P-R Int : 000 ms QRS Dur : 120 ms QT Int : 322 ms P-R-T Axes : 000 -51 130 degrees QTc Int : 543 ms Wide QRS tachycardia Left axis deviation RSR' or QR pattern in V1 suggests right ventricular conduction delay Left ventricular hypertrophy with QRS widening and repolarization abnormality Possible Lateral infarct , age undetermined Inferior infarct , age undetermined Abnormal ECG Confirmed by DUOGLAS DIAZ ([id number]), editorial writer LAWSON DE SOUZA ([id number]) on 10/11/2017 4:11:37 PM Referred By: Confirmed By:DOUGLAS DIAZ
--- NOTE | 2017-10-11 16:12 | EKG ---
Test Reason : Blood Pressure : / mmHG Vent. Rate : 096 BPM Atrial Rate : 096 BPM P-R Int : 160 ms QRS Dur : 096 ms QT Int : 386 ms P-R-T Axes : 041 125 -41 degrees QTc Int : 487 ms Normal sinus rhythm Possible Left atrial enlargement Right axis deviation T wave abnormality, consider inferior ischemia Abnormal ECG Confirmed by DOUGLAS DIAZ ([id number]), sound editor LAWSON DE SOUZA ([id number]) on 10/11/2017 4:11:40 PM Referred By: Confirmed By:DOUGLAS DIAZ
== END 2017-10-10 15:21 | disposition home or self-care (01) | DRG 226 ==
LOC: ERS 14:11 → CCU 21:13 → 2NO 10-09 18:13
PROVIDERS: ADMIT Family Medicine; ATTEND Family Medicine
PROC: 0JH608Z Insertion of Defibrillator Generator into Chest Subcutaneous Tissue and Fascia, Open Approach (ICD-10-PCS; principal; 2017-10-09)
PROC: 02HK3KZ Insertion of Defibrillator Lead into Right Ventricle, Percutaneous Approach (ICD-10-PCS; 2017-10-09)
DX: I47.2 Ventricular tachycardia (principal); J96.01 Acute respiratory failure with hypoxia; I50.21 Acute systolic (congestive) heart failure; N17.9 Acute kidney failure, unspecified; I42.9 Cardiomyopathy, unspecified; I11.0 Hypertensive heart disease with heart failure; R74.0 Nonspecific elevation of levels of transaminase and lactic acid dehydrogenase [LDH]; I07.1 Rheumatic tricuspid insufficiency
CPT/HCPCS: 33249; 36005; 36415; 71045; 71275; 75820; 80048; 80053; 80061; 80306; 81003; 82553; 83540; 83735; 84443; 84484; 85007; 85025; 85027; 85379; 85610; 85730; 86038; 86225; 87040; 87389; 93005; 93010; 93306; 93458; 93641; 94760; 99152; 99153; A4216; C1769; C1777; C1786; J0153; J0282; J1644; J1940; J2001; J2250; J2704; J3010; J3475; J3490; J7050; J7070

== ENCOUNTER 2017-11-30 18:55 | Emergency (ER) | payer BC, OTHER ==
[2017-11-30 20:01] LABS: #Eosinphils 0.1 thou/uL (0.0-0.7); #Lymphocytes 1.5 thou/uL (1.20-3.40); #Monocytes 0.6 thou/uL (0.11-0.59); #Neutrophils 4.7 thou/uL (1.40-6.50); %Basophils 0.5 % (0.0-1.0); %Eosinophils 0.9 % (0.0-10.0); %Lymphocytes 22.1 % (21.0-51.0); %Monocytes 8.8 % (0.0-10.0); %Neutrophils 67.8 % (42.0-75.0); Hemoglobin 15.2 g/dL (14.0-18.0); Mean Corpuscular HGB CONC 35.1 g/dL (32.0-36.0); Mean Corpuscular Hemoglobin 31.9 pg (27.0-31.0); Mean Corpuscular Volume 90.9 fL (78.0-98.0); Mean Platelet Volume 9.3 fL (7.4-10.4); Platelet Count 166 thou/uL (130-400); RBC Distribution Width 14.2 % (11.5-14.5); Red Blood Cell (RBC) Count 4.76 mill/uL (4.70-6.10); White Blood Cell (WBC) Count 6.9 thou/uL (4.8-10.8)
[2017-11-30 20:21] LABS: ALT (SGPT) 24 U/L (8-55); AST (SGOT) 20 U/L (5-34); Albumin 4.7 g/dL (3.5-5.0); Alkaline Phosphatase 69 U/L (40-150); Anion Gap 10 mmol/L (10-20); BUN (Urea Nitrogen) 18 mg/dL (8.9-20.6); Bilirubin, Total 0.6 mg/dL (0.2-1.2); Calc. Creatinine Clearance 0 mL/min (70-130); Carbon Dioxide 26 mmol/L (22-29); Chloride 108 mmol/L (98-107); Estimated GFR-MDRD 49; Globulin 3.1 g/dL (2.4-3.5); Glucose 118 mg/dL (70-105); Potassium 3.9 mmol/L (3.5-5.1); Protein, Total 7.8 g/dL (6.0-8.3); Sodium 140 mmol/L (136-145)
[2017-11-30 20:26] LABS: CKMB 1.1 ng/mL (0-6.6); Troponin I Less than 0.010 ng/mL (< 0.028)
--- NOTE | 2017-11-30 21:01 | RAD ---
PORTABLE CHEST: HISTORY: Syncope. COMPARISON: 10/07/2017 FINDINGS: Mild cardiomegaly. There is mild vascular engorgement; however, the vascular congestion is much less pronounced than on the prior study. There is no evidence of overt congestion or edema. There is no infiltrate or effusion. AICD lead is noted. IMPRESSION: Mild cardiomegaly. The lungs are otherwise clear and unremarkable. POS: AGW
--- NOTE | 2017-12-03 13:33 | EKG ---
Test Reason : Blood Pressure : / mmHG Vent. Rate : 099 BPM Atrial Rate : 099 BPM P-R Int : 168 ms QRS Dur : 110 ms QT Int : 364 ms P-R-T Axes : 049 089 056 degrees QTc Int : 467 ms Normal sinus rhythm Normal ECG Confirmed by SANDRA MILLIGAN, ZI ([id number]), editor map AMBROSIO PAREKH ([id number]) on 12/03/2017 1:32:50 PM Referred By: Confirmed By:ZI FLORES MD
== END 2017-11-30 23:30 | disposition home or self-care (01) ==
LOC: ERS 18:55
DX: E86.0 Dehydration (principal); Z79.82 Long term (current) use of aspirin; Z79.899 Other long term (current) drug therapy
CPT/HCPCS: 71045; 80053; 82553; 83880; 84484; 85025; 93005; 96360

== ENCOUNTER → 2023-08-29 | Day surgery (SDC) | payer BC ==
[2023-08-26 11:53] VITALS: BMI 42.5
[2023-08-26 11:59] LABS: Hemoglobin 15.1 g/dL (13.5-17.5); Mean Corpuscular Hemoglobin 31.9 pg (27.0-33.0); Mean Corpuscular Volume 88.8 fl (81.2-95.1); Mean Platelet Volume 11.4 fl (7.4-10.4); Platelet Count 209 10x3/uL (150-450); RBC Distribution Width 12.7 % (11.5-14.5); Red Blood Cell (RBC) Count 4.73 10x6/uL (4.32-5.72); White Blood Cell (WBC) Count 6.8 10x3/uL (3.5-10.5)
[2023-08-26 12:27] LABS: Anion Gap 14 mmol/L (10-20); BUN (Urea Nitrogen) 15 mg/dL (8.9-20.6); Calc. Creatinine Clearance 270 mL/min (70-130); Calcium 9.9 mg/dL (7.8-10.44); Carbon Dioxide 20 mmol/L (22-29); Chloride 109 mmol/L (98-107); Estimated GFR 119; Glucose 92 mg/dL (70-105); Potassium 4.3 mmol/L (3.5-5.1); Sodium 139 mmol/L (136-145)
[~2023-08-29] MED LIST: PROPOFOL 200 MG/20 ML VIAL ONE
== END ==
LOC: SDC 07:08
PROVIDERS: ATTEND Internal Medicine Cardiovascular Disease
PROC: 4B02XTZ Measurement of Cardiac Defibrillator, External Approach (ICD-10-PCS; principal; 2023-08-29)
DX: I42.8 Other cardiomyopathies (principal); I11.0 Hypertensive heart disease with heart failure; I50.9 Heart failure, unspecified; Z95.810 Presence of automatic (implantable) cardiac defibrillator
CPT/HCPCS: 80048; 85027; 93642; J2704

== ENCOUNTER 2024-01-05 08:45 | Outpatient (CLI) | payer BC ==
[2024-01-05 10:42] LABS: #Basophils 0.05 10x3/uL (0.0-0.2); %Basophils 0.7 % (0.0-1.0); %Eosinophils 1.8 % (0.0-10.0); %Lymphocytes 31.8 % (21.0-51.0); %Monocytes 9.9 % (0.0-10.0); %Neutrophils 55.4 % (42.0-75.0); Hematocrit 42.2 % (42.0-52.0); Hemoglobin 14.3 g/dL (14.0-18.0); Mean Corpuscular HGB CONC 33.9 g/dL (32.0-36.0); Mean Corpuscular Hemoglobin 30.8 pg (27.0-31.0); Mean Corpuscular Volume 90.9 fL (78.0-98.0); Mean Platelet Volume 12.2 fL (7.4-10.4); Platelet Count 191 10x3/uL (130-400); RBC Distribution Width 13.2 % (11.5-14.5); Red Blood Cell (RBC) Count 4.64 mill/uL (4.70-6.10)
[2024-01-05 10:57] LABS: INR-International Normal Ratio 1.1; PTT 31.1 sec (22.9-36.1); Prothrombin Time 13.7 sec (12.0-14.7)
[2024-01-05 11:01] LABS: Anion Gap 14 mmol/L (10-20); BUN (Urea Nitrogen) 17 mg/dL (8.9-20.6); Calc. Creatinine Clearance 0 mL/min (70-130); Calcium 9.6 mg/dL (7.8-10.44); Carbon Dioxide 18 mmol/L (22-29); Chloride 110 mmol/L (98-107); Estimated GFR 99; Glucose 100 mg/dL (70-105); Potassium 4.3 mmol/L (3.5-5.1); Sodium 138 mmol/L (136-145)
== END 2024-01-05 08:46 | disposition home or self-care (01) ==
LOC: LABBT 08:45
PROVIDERS: ATTEND Internal Medicine Cardiovascular Disease
DX: Z01.812 Encounter for preprocedural laboratory examination (principal); I25.5 Ischemic cardiomyopathy
CPT/HCPCS: 80048; 85025; 85610; 85730

== ENCOUNTER 2024-01-07 09:58 | Day surgery (SDC) | payer BC ==
[2024-01-05 08:58] VITALS: BMI 41.3
[2024-01-07] MEDS ORDERED: fentaNYL 50 mcg/mL 1 mL Vial ONE (10:33)
[2024-01-07] MEDS ORDERED: Midazolam HCl 2 mg/2 ml Vial ONE (10:34)
[2024-01-07] MEDS ORDERED: Lidocaine 1% (PF) 30 ML VIAL ONE (10:34)
[2024-01-07] MEDS ORDERED: PROPOFOL 20 ML ONE (10:34)
[2024-01-07] MEDS ORDERED: Dexamethasone 4 mg/ml Vial ONE (10:50)
[2024-01-07] MEDS ORDERED: Ondansetron PF 4 MG/2 ML Vial ONE (10:50)
[2024-01-07] MEDS ORDERED: Morphine 4 MG/ML VIAL ONE (11:16)
== END 2024-01-07 13:45 | disposition home or self-care (01) ==
LOC: SDC 09:58
PROVIDERS: ATTEND Internal Medicine Cardiovascular Disease
PROC: 0JH608Z Insertion of Defibrillator Generator into Chest Subcutaneous Tissue and Fascia, Open Approach (ICD-10-PCS; principal; 2024-01-07)
PROC: 0JPT0PZ Removal of Cardiac Rhythm Related Device from Trunk Subcutaneous Tissue and Fascia, Open Approach (ICD-10-PCS; principal; 2024-01-07)
DX: I25.5 Ischemic cardiomyopathy (principal); T82.51 Breakdown (mechanical) of other cardiac and vascular devices and implants; E66.01 Morbid (severe) obesity due to excess calories; I47.20 Ventricular tachycardia, unspecified; I50.9 Heart failure, unspecified; I11.0 Hypertensive heart disease with heart failure; N17.9 Acute kidney failure, unspecified; Z95.810 Presence of automatic (implantable) cardiac defibrillator; Z79.82 Long term (current) use of aspirin; Z79.899 Other long term (current) drug therapy
CPT/HCPCS: 33262; 93005; C1763; J1100; J2001; J2250; J2272; J2405; J2704; J3010